=== PATIENT | female | born 1960 | race Caucasian/White ===

== ENCOUNTER 2016-11-11 10:54 | Emergency (ER) | payer BC ==
[~2016-11-11] VITALS: Ht 160 cm; Wt 57.5 kg
[2016-11-11 10:57] VITALS: Ht 160 cm; Wt 57.5 kg
[2016-11-11 12:44] LABS: ADD SCAN DIFF NO
[2016-11-11 12:47] LABS: ADD UMIC YES; URINE BILIRUBIN (Dip) NEGATIVE (NEGATIVE); URINE BLOOD (Dip) 1+ (NEGATIVE); URINE COLOR LT. YELLOW (YELLOW); URINE GLUCOSE (Dip) NEGATIVE (NEGATIVE); URINE KETONES (Dip) NEGATIVE (NEGATIVE); URINE LEUKOCYTE ESTERASE (Dip) NEGATIVE (NEGATIVE); URINE NITRITE (Dip) NEGATIVE (NEGATIVE); URINE TOTAL PROTEIN (Dip) NEGATIVE (NEGATIVE); URINE UROBILINOGEN (Dip) 0.2 E.U./dL (0.1-1.0)
[2016-11-11 12:48] LABS: EOSINOPHILS % 0.4 % (0.0-7.0); HEMATOCRIT 36.2 % (37.0-47.0); LYMPHOCYTES # 1.3 10^3/ul (0.8-2.9); LYMPHOCYTES % 49.4 % (15.0-51.0); MEAN CORPUSCULAR HEMOGLOBIN 29.9 pg (29.0-33.0); MEAN CORPUSCULAR HGB CONC 33.1 g/dl (32.0-37.0); MEAN CORPUSCULAR VOLUME 90.3 fl (82.0-101.0); MEAN PLATELET VOLUME 8.9 fl (7.4-10.4); MONOCYTE # 0.3 10^3/ul (0.3-0.9); MONOCYTES % 9.4 % (0.0-11.0); NEUTROPHIL # 1.1 10^3/ul (1.6-7.5); NEUTROPHILS % 40.4 % (39.0-77.0); PLATELET COUNT 192 10^3/UL (140-415); RED BLOOD COUNT 4.01 10^6/ul (4.20-5.40); RED CELL DISTRIBUTION WIDTH 12.7 % (11.5-14.5); WHITE BLOOD COUNT 2.7 10^3/ul (4.8-10.8)
--- NOTE | 2016-11-11 12:51 | RADRPT ---
PROCEDURE: XR Chest. CLINICAL INDICATION: chest pain, cough TECHNIQUE: Single frontal view of the chest was obtained COMPARISON: None FINDINGS: The heart and mediastinum are within normal limits. The lungs are clear. There is no pleural effusion or pneumothorax. RPTAT: AA IMPRESSION: No acute disease. .Fernando Mancera MD, MD Date Time Electronically viewed and signed by .Fernando Mancera MD, on 11/11/2016 12:50 .S/
[2016-11-11 13:07] LABS: CHLORIDE 101 mmol/L (97-110)
[2016-11-11 13:08] LABS: ALBUMIN 4.2 g/dl (3.3-4.9); SODIUM 141 mmol/L (135-144)
--- NOTE | 2016-11-11 13:08 | RADRPT ---
PROCEDURE: CT Brain without contrast. CLINICAL INDICATION: Headache. Visual disturbance. TECHNIQUE: A CT of the brain without contrast was performed utilizing axial sections from the skul l base through the vertex. The patient was scanned without intravenous contrast enhancement. Sagitta l and coronal reformatted images were obtained using the data from the axial images. Total exam DLP is 630.20 mGy-cm. CTDIvol is 44.90 mGy. One or more of the following dose reduction techniques we re used: Automated exposure control, adjustment of the mA and/or kV according to patient size, use o f iterative reconstruction technique. COMPARISON: None available FINDINGS: There is normal patricia-white matter differentiation. The ventricles and cisterns are normal. There is no intracranial hemorrhage or space-occupying lesion. There is no skull fracture or lytic lesion. IMPRESSION: 1. Normal noncontrast CT scan of the brain. 2. No intracranial hemorrhage. RPTAT: QQ .Chetan Chapa MD, MD Date Time Electronically viewed and signed by .Chetan Chapa MD, on 11/11/2016 13:08 .R/
[2016-11-11 13:10] LABS: CREATININE 0.66 mg/dl (0.44-1.00)
[2016-11-11 13:11] LABS: ALANINE AMINOTRANSFERASE 41 IU/L (13-69); ALKALINE PHOSPHATASE 66 IU/L (42-121); ANION GAP 16 (8-16); ASPARTATE AMINO TRANSFERASE 34 IU/L (15-46); BILIRUBIN,INDIRECT 0.3 mg/dl (0-1.1); BILIRUBIN,TOTAL 0.3 mg/dl (0.2-1.3); BLOOD UREA NITROGEN 9 mg/dl (7-20); CALCIUM 9.1 mg/dl (8.4-10.2); CARBON DIOXIDE 28 mmol/L (21-31); GLUCOSE 98 mg/dl (70-220)
[2016-11-11 13:31] LABS: INR 0.95; PARTIAL THROMBOPLASTIN TIME 26.8 Sec (25.0-35.0); PROTIME 12.7 Sec (12.2-14.2)
[2016-11-11 13:32] LABS: C-REACTIVE PROTEIN < 0.5 mg/dl (0.0-0.9); TROPONIN-I < 0.012 ng/ml (0.00-0.12)
[2016-11-11] MEDS ORDERED: TYL500 PO (14:27)
[2016-11-11] MEDS ORDERED: ONDA4TAB8 PO (14:28)
[2016-11-11 14:52] VITALS: RESP 16
--- NOTE | 2016-11-15 16:53 | ERD ---
ER Documentation Chief Complaint Date/Time DATE: 11/15/16 TIME: 16:47 Chief Complaint cold symptoms and blurred vision x 4 day HPI This is a 56-year-old female presents to the ER complaining of fever for the last 4 days. Patient states that her fever has been as high as 103. She is also complaining of cough, weakness, nausea, bilateral ear pressure and pain. Patient denies any headache she denies any head trauma. Patient states that 2 days ago she began to develop blurry vision. Blurry vision bilateral denies any vision loss. Patient does admit to dry mouth. Patient denies any neck pain, neck stiffness. She denies any urinary frequency or dysuria. Patient has not child anywhere. He denies any rashes or recent bug bites. ROS 12 point review of systems was done, all negative except per HPI. Medications Home Meds Active Scripts Ondansetron Hcl* (Zofran*) 4 Mg Tablet, 4 MG PO Q6H for NAUSEA AND/OR VOMITING, #30 TAB Prov:ELLIE BROCKNA C 11/11/16 Acetaminophen* (Tylenol*) 500 Mg Tab, 500 MG PO Q4H Y for MILD PAIN LEVEL 1-3 for 3 Days, TAB Prov:DELMY,NAHUM C 11/11/16 Allergies Allergies: Coded Allergies: No Known Allergy (Unverified , 11/11/16) PMhx/Soc Medical and Surgical Hx: pt denies Medical Hx, pt denies Surgical Hx Hx Alcohol Use: No Hx Substance Use: No Hx Tobacco Use: No Smoking Status: Never smoker Physical Exam Vitals Vital Signs Date Time Temp Pulse Resp B/P Pulse Ox O2 Delivery O2 Flow Rate FiO2 11/11/16 14:52 16 98 Room Air 11/11/16 12:50 Nasal Cannula 2 11/11/16 10:57 98.7 78 20 135/61 98 Physical Exam GENERAL: The patient is well developed and appropriate for usual state of health , in no apparent distress. HEENT: Atraumatic. Conjunctivae are pink. Pupils equal, round, and reactive to light. Extraocular muscles are grossly intact. Bilateral tympanic membranes are clear with no evidence of erythema, bulging or perforation. No sinus tenderness. NECK: C-spine is soft and supple. There is no cervical lymphadenopathy. CHEST: Clear to auscultation bilaterally. There are no rales, wheezes or rhonchi. HEART: Regular rate and rhythm. No murmurs, clicks, rubs or gallops. EXTREMITIES:No focal swelling or erythema. Full range of motion. Grossly neurovascularly intact. NEURO: Alert and oriented. Cranial nerves II through XII are intact. Motor strength in all 4 extremities with 5/5 strength. Sensation grossly intact. Normal speech and gait. Negative [place] SKIN: The skin is warm and dry. Result Diagram: 11/11/16 1235 11/11/16 1235 Results 24 hrs Laboratory Tests Test 11/11/16 12:35 White Blood Count 2.710^3/ul Red Blood Count 4.0110^6/ul Hemoglobin 12.0g/dl Hematocrit 36.2% Mean Corpuscular Volume 90.3fl Mean Corpuscular Hemoglobin 29.9pg Mean Corpuscular Hemoglobin Concent 33.1g/dl Red Cell Distribution Width 12.7% Platelet Count 61365^3/UL Mean Platelet Volume 8.9fl Neutrophils % 40.4% Lymphocytes % 49.4% Monocytes % 9.4% Eosinophils % 0.4% Basophils % 0.0% Nucleated Red Blood Cells % 0.0/100WBC Neutrophils # 1.110^3/ul Lymphocytes # 1.310^3/ul Monocytes # 0.310^3/ul Eosinophils # 0.010^3/ul Basophils # 0.010^3/ul Nucleated Red Blood Cells # 0.010^3/ul Erythrocyte Sedimentation Rate 43mm/Hr Prothrombin Time 12.7Sec Prothrombin Time Ratio 1.0 INR International Normalized Ratio 0.95 Activated Partial Thromboplast Time 26.8Sec Urine Color LT. YELLOW Urine Clarity CLEAR Urine pH 6.5 Urine Specific [place] <=1.005 Urine Ketones NEGATIVE Urine Nitrite NEGATIVE Urine Bilirubin NEGATIVE Urine Urobilinogen 0.2 E.U./dL Urine Leukocyte Esterase NEGATIVE Urine Microscopic RBC 2-5/HPF Urine Microscopic WBC 2-5/HPF Urine Hemoglobin 1+ Urine Glucose NEGATIVE% Urine Total Protein NEGATIVE Sodium Level 141mmol/L Potassium Level 4.0mmol/L Chloride Level 101mmol/L Carbon Dioxide Level 28mmol/L Anion Gap 16 Blood Urea Nitrogen 9mg/dl Creatinine 0.66mg/dl Glucose Level 98mg/dl Lactic Acid Level 1.2mmol/L Calcium Level 9.1mg/dl Total Bilirubin 0.3mg/dl Direct Bilirubin 0.00mg/dl Indirect Bilirubin 0.3mg/dl Aspartate Amino Transf (AST/SGOT) 34IU/L Alanine Aminotransferase (ALT/SGPT) 41IU/L Alkaline Phosphatase 66IU/L Troponin I < 0.012ng/ml C-Reactive Protein < 0.5mg/dl Total Protein 8.0g/dl Albumin 4.2g/dl Globulin 3.80g/dl Albumin/Globulin Ratio 1.10 Procedures/MDM EKbpm no ST elevation or t wave inversion. Differential diagnosis includes but is not limited to, viral illness, influenza , otitis media, strep throat, pneumonia, TIA, subarachnoid hemorrhage, CVA, meningitis, encephalitis, West Nile virus, diabetes, UTI, pyelonephritis, endocarditis , sepsis. This is a 56-year-old female presents to the ER with multiple complaints. Patient was stable throughout ER course and remained afebrile. Her physical examination was benign, suspicion for intracranial pathology such as subarachnoid hemorrhage or CVA is low as her neurological exam is normal and without any focal neurological deficits. Suspicion for otitis media, strep throat or pneumonia is low. I discussed this case with my supervising physician Dr. weber. He agrees with my medical decision making. At this time patient will be treated symptomatically for her fever and nausea. Patient needs to follow-up with her primary care doctor within 1-2 days return to ER sooner symptoms worsen. My medical decision making was shared with the patient is as agrees to plan. Departure Diagnosis: Primary Impression: Febrile illness Condition: Stable Patient Instructions: Fever Control (Adult) Additional Instructions: Call your primary care doctor TOMORROW for an appointment during the next 1-2 days.See the doctor sooner or return here if your condition worsens before your appointment time. NAHUM BROCK November 15, 2016 16:53
== END 2016-11-11 14:53 | disposition home or self-care (01) ==
LOC: FTE 10:54
DX: R50.9 Fever, unspecified (principal); R07.9 Chest pain, unspecified; R51 Headache
CPT/HCPCS: 36415; 70450; 71010; 80053; 81001; 81003; 83605; 84484; 85025; 85610; 85651; 85730; 86140; 87040; 87086; 87400; 93005